=== PATIENT | female | born 1980 | race Caucasian/White ===

== ENCOUNTER 2017-07-22 03:47 | Observation (INO) ==
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
[2017-07-22] MEDS ORDERED: 0.9 % Sodium Chloride 1,000 ML ONE (04:13)
[2017-07-22 04:19] LABS: Basophils % 0.2 %; Eosinophils # 0.1 K/mcL (0.0-0.6); Eosinophils % 0.7 %; Hematocrit 35.7 % (35.3-44.9); Hemoglobin 11.8 g/dL (11.5-15.4); Immature Granulocytes % 0.6 % (0-4); Lymphocytes # 1.2 K/mcL (0.6-4.6); Lymphocytes % 12.2 %; Mean Corpuscular HGB Conc 33.1 g/dL (31.6-35.5); Mean Corpuscular Hemoglobin 27.6 pg (28.0-33.3); Mean Corpuscular Volume 83.4 fL (83.0-100.0); Mean Platelet Volume 10.1 fL (9.4-12.4); Monocytes # 0.8 K/mcL (0.0-1.3); Neutrophils # 7.9 K/mcL (1.6-8.9); Platelet Count 338 K/mcL (140-400); Red Blood Count 4.28 M/mcL (3.82-4.97); Red Cell Distribution Width 13.8 % (11.5-14.5); Segmented Neutrophils % 78.3 %
[2017-07-22 04:33] LABS: Alanine Aminotransferase 17 Units/L (0-55); Albumin 2.7 g/dL (3.5-5.0); Albumin/Globulin Ratio 0.6 (1.1-2.2); Alkaline Phosphatase 71 Units/L (38-126); Aspartate Amino Transferase 14 Units/L (5-34); BUN/Creatinine Ratio 6 (6-26); Bilirubin,Direct 0.2 mg/dL (0.0-0.5); Bilirubin,Indirect 0.1 mg/dL (0.0-1.2); Bilirubin,Total 0.3 mg/dL (0.2-1.2); Calcium 8.7 mg/dL (8.6-10.8); Carbon Dioxide 20 mEq/L (19-29); Chloride 106 mEq/L (98-109); Globulin 4.2 g/dL (2.4-3.5); Glucose 114 mg/dL (70-99); Osmolality,Calculated 275 (280-300); Potassium 3.7 mEq/L (3.5-4.5); Sodium 134 mEq/L (136-145); Total Protein 6.9 g/dL (6.0-8.3); eGFR For African Americans > 60 (> 60); eGFR For Non-African Americans > 60 (> 60)
[2017-07-22 04:36] LABS: Blood Urea Nitrogen 3 mg/dL (7-20)
[2017-07-22] MEDS ORDERED: 0.9 % Sodium Chloride 1,000 ML IVC ONE ×2 (04:52→05:08)
[2017-07-22 05:02] LABS: Bilirubin,Urine Negative (Negative); Blood,Urine Negative (Negative); Clarity,Urine Cloudy (Clear); Color,Urine Yellow (Yellow); Glucose,Urine (UA) Normal (Normal); Ketones,Urine Negative (Negative); Leukocyte Esterase,Urine Trace (Negative); Nitrite,Urine Negative (Negative); PH,Urine 7.5 pH Units (5.0-8.0); Protein,Urine Negative (Neg-Trace); Specific Gravity,Urine 1.019 (1.010-1.025); Urobilinogen,Urine Normal (Normal)
[2017-07-22 05:04] LABS: Bacteria,Urine Many per hpf (None-Few); Hyaline Casts,Urine None Seen per lpf (None-Few); Squamous Epithelial Cell,Urine Many per lpf (None-Few)
[2017-07-22 05:13] LABS: RBC,Urine 0-3 per hpf (0-3)
[2017-07-22] MEDS ORDERED: *HR* Morphine 2 MG/ML SYRINGE IVP ONE (05:17)
[2017-07-22] MEDS ORDERED: Ondansetron 4 MG/2 ML VIAL IVP PRN ×2 (09:56→16:27)
[2017-07-22] MEDS ORDERED: Naloxone 0.4 MG/ML INJ IVP PRN (09:56)
--- NOTE | 2017-07-22 10:34 | Internal Med History&Physical ---
Date of Encounter: 07/22/17 Time of Encounter: 10:15 Assessment and Plan (1) Influenza A Current visit: Yes Status: Acute Patient with acute influenza A. Symptom onset less than 48 hours. Per CDC guidelines, will start patient on treatment with Tamiflu. Supportive care. (2) Current visit: Yes Status: Acute 17 weeks of gestation. Continue vitamins. Qualifiers: Weeks of gestation: 17 weeks Qualified Code(s): Z3A.17 - 17 weeks gestation of (3) Nausea and vomiting Current visit: Yes Status: Acute Improving. We will use Zofran as needed for symptom control Qualifiers: Vomiting type: unspecified Vomiting Intractability: non-intractable Qualified Code(s): R11.2 - Nausea with vomiting, unspecified (4) Dehydration Current visit: Yes Status: Acute We will treat with IV fluids. (5) Low back pain Current visit: Yes Status: Acute Patient complaining of low back pain. Could be related to influenza. Urinalysis does not show any signs of acute pyelonephritis. Does have radiation down the thigh but not radiculopathy. Will treat symptomatically. Avoid narcotic agents if possible. Qualifiers: Chronicity: acute Back pain laterality: midline Sciatica presence: without sciatica Qualified Code(s): M54.5 - Low back pain Internal Medicine - H&P: HPI Chief complaint: Cough, nausea, vomiting, body aches, low back pain low-grade fever Admitted From: Emergency Dept Plans for Post Hospital Care: Home History of present illness: Ms. Rich is a 37 year old female patient who is 17 weeks with twin gestation presented to the ER with complaints of nausea and vomiting along with low-grade fever and cough. Her symptoms began on Friday evening with cough and low-grade fever. Since yesterday afternoon she began to have nausea and vomiting. She also reported low back ache that began yesterday afternoon. She does have some radiation of the pain down to her thighs. No focal weakness or numbness. Denies any chest pain. She did have some wheezing along with her cough. No history of asthma or COPD. No dysuria. Past Med Surg Social Fam HX - Past Medical History Attestation: Yes The following information was validated with the patient. Source: patient Medical history: kidney stones, other Psychiatric history: no psych history - Past Surgical History Surgical History: appendectomy, , other - Social History Smoking Status: Never smoker Smokeless Tobacco Status: No Alcohol use: occasionally Drug use: none - Family History Maternal Grandmother Name: Trixie Age: 85 Living Status: Still Living Hx Family Cardiac Disorders: Yes Internal Medicine - H&P: Meds Vit/Iron Fumarate/FA [ Tablet] 1 tab PO DAILY 07/22/17 [History ] 3 Allergy/AdvReac Type Severity Reaction Status Date / Time No Known Allergies Allergy Verified 07/22/17 03:49 All Systems PM: A 10-system review of systems was performed and is negative for pertinent findings except as documented above in the HPI. - Constitutional Constitutional: fever(s), no chills, no night sweats - EENT Eyes: no change in vision, no discharge, no pain, no photophobia Ears: no ear discharge, no ear pain, no tinnitus Nose, mouth and throat: no dysphagia, no nasal discharge, no neck pain, no sore throat - Cardiovascular Cardiovascular ROS IM: no chest pain, no diaphoresis, no dyspnea, no lightheadedness, no palpitations, no syncope - Respiratory Respiratory: cough, wheezing, no dyspnea, no excessive phlegm production - Gastrointestinal Gastrointestinal: nausea, vomiting, no abdominal pain, no diarrhea, no hematemesis, no hematochezia, no melena - Genitourinary Genitourinary: no change in urinary stream, no dysuria, no flank pain, no hematuria - Musculoskeletal Musculoskeletal ROS IM: no numbness, no tingling - Integumentary Integumentary IM: no rash, no unusual bruising - Neurological Neurological ROS: no confusion, no convulsions, no focal weakness, no numbness, no tingling, no tremor(s) - Hematologic/Lymphatic Hematologic/Lymphatic: no easy bruising - Constitutional Vitals: Temp Pulse Resp BP Pulse Ox 97.0 F L 107 18 126/85 99 07/22/17 08:39 07/22/17 08:39 07/22/17 08:39 07/22/17 08:39 07/22/17 08:39 General appearance: Present: cooperative, mild distress, A&O X 3, answers questions appropriately - Eye Eye exam: Present: EOMI, PERRL, conjuntiva pink, sclera anicteric - Respiratory Respiratory exam: Present: CTAB. Absent: accessory muscle use, rales, rhonchi, wheezes - Cardiovascular Cardiovascular exam: Present: RRR, +S1, +S2. Absent: diastolic murmur, gallop, rubs, systolic murmur - GI/Abdominal GI/Abdominal exam: Present: normal bowel sounds, soft, no peritoneal signs. Absent: distended, tenderness - Extremities Exam Extremities exam: Present: warm, radial pulses palpable and symmetrical. Absent : calf tenderness, cyanotic, pedal edema - Neurological Exam Neurological exam: Present: alert, CN II-XII intact, oriented X3, no focal deficits. Absent: facial droop, speech deficit - Skin Skin exam: Present: dry, intact Internal Med - H&P Results - Labs CBC & Chem 7: 07/22/17 04:10 07/22/17 04:10 - EKG Data -: EKG Interpreted by Myself EKG shows normal: sinus rhythm Rate: tachycardia
[2017-07-22] MEDS: Acetaminophen 325 MG TABLET PO PRN ×2 (10:45→19:41)
[2017-07-22 11:07] LABS: Basophils % 0.2 %; Eosinophils # 0.1 K/mcL (0.0-0.6); Eosinophils % 0.7 %; Hematocrit 33.7 % (35.3-44.9); Immature Granulocytes % 0.7 % (0-4); Lymphocytes # 1.5 K/mcL (0.6-4.6); Lymphocytes % 16.7 %; Mean Corpuscular HGB Conc 32.6 g/dL (31.6-35.5); Mean Corpuscular Hemoglobin 27.9 pg (28.0-33.3); Mean Corpuscular Volume 85.5 fL (83.0-100.0); Mean Platelet Volume 10.2 fL (9.4-12.4); Monocytes # 0.7 K/mcL (0.0-1.3); Monocytes % 8.1 %; Neutrophils # 6.4 K/mcL (1.6-8.9); Platelet Count 311 K/mcL (140-400); Red Blood Count 3.94 M/mcL (3.82-4.97); Segmented Neutrophils % 73.6 %
[2017-07-22] MEDS: 0.9 % Sodium Chloride 1,000 ML IVC SCH (17:41)
--- NOTE | 2017-07-22 17:52 | Electrocardiograph Report ---
[address] [address] Test Date: 2017-07-22 Pat Name: Viridiana Torresler Department: 104 Room: 3B Gender: F Solution Analyst: LUCERO : 1980 Requested By: Asher Hammer Order Number: [id number] Reading MD: Daisy Rich Measurements Intervals [place] Rate: 139 P: 69 AK: 131 QRS: 45 QRSD: 82 T: 19 QT: 352 QTc: 433 Interpretive Statements SINUS TACHYCARDIA NONSPECIFIC ST & T-WAVE ABNORMALITY ABNORMAL RHYTHM ECG Electronically Signed On 07-22-2017 17:50:51 EST by Daisy Rich
[2017-07-23] MEDS: 0.9 % Sodium Chloride 1,000 ML IVC SCH (04:08)
[2017-07-23 07:11] VITALS: BP 117/79
--- NOTE | 2017-07-23 09:27 | Discharge Summary ---
Date of Encounter: 07/23/17 Time of Encounter: 09:15 - Discharge Diagnosis (1) Influenza A Priority: Primary Status: Acute (2) Priority: Secondary Status: Acute Qualifiers: Weeks of gestation: 17 weeks Qualified Code(s): Z3A.17 - 17 weeks gestation of (3) Nausea and vomiting Priority: Secondary Status: Acute Qualifiers: Vomiting type: unspecified Vomiting Intractability: non-intractable Qualified Code(s): R11.2 - Nausea with vomiting, unspecified (4) Dehydration Priority: Secondary Status: Acute (5) Low back pain Priority: Secondary Status: Resolved Qualifiers: Chronicity: acute Back pain laterality: midline Sciatica presence: without sciatica Qualified Code(s): M54.5 - Low back pain - Discharge Medications Prescriptions: GuaiFENesin/Dextromethorphan [Robitussin/Dm] 10 ml PO Q6HR PRN #200 ml PRN Reason: Cough Oseltamivir [Tamiflu] 75 mg PO BID #7 capsule Home Medications: Vit/Iron Fumarate/FA [ Tablet] 1 tab PO DAILY 07/22/17 [History ] GuaiFENesin/Dextromethorphan [Robitussin/Dm] 10 ml PO Q6HR PRN #200 ml 07/23/17 [Rx] Oseltamivir [Tamiflu] 75 mg PO BID #7 capsule 07/23/17 [Rx] Allergies/Adverse Reactions: 3 Allergy/AdvReac Type Severity Reaction Status Date / Time No Known Allergies Allergy Verified 07/22/17 03:49 Date of admission: 07/22/17 08:16 Primary care physician: Robbin Rascon MD Discharging clinician: Randy Quintanilla Anticipated date of discharge: 07/23/17 - Patient Status Disposition: Home, Self-Care Condition: Good Functional capacity at discharge: independent ambulation Overall status at discharge: patient is back to baseline - Discharge Instructions Instructions: Oseltamivir (By mouth), Dextromethorphan/Guaifenesin/ Phenylephrine (By mouth), Influenza (DC) Follow Up With: Robbin Rascon MD [Primary Care Provider] - 07/31/17 2:00 pm - Diet and Activity Activity: increase activity as tolerated Diet: advance to your usual diet Hospital course: Ms. Rich is a 37 year old female patient who is 17 weeks with twin gestation presented to the ER with complaints of intractable nausea and vomiting along with low back pain along with some cough and upper respiratory symptoms. Patient was found to be positive for influenza A and as her symptom onset was less than 48 hours, she was started on Tamiflu. She was also treated symptomatically for her nausea and vomiting. Her symptoms have since improved and she is now feeling much better. Low back pain has resolved. She will be discharged home and will complete course of Tamiflu. She will follow up with her primary care provider and produce shipper for further management. - Time Spent with Patient Total time spent providing and/or coordinating discharge services: Less than 30 minutes (25 min) - Constitutional Vitals: Temp Pulse Resp BP Pulse Ox 97.9 F 100 18 117/79 95 07/23/17 07:10 07/23/17 07:10 07/23/17 07:10 07/23/17 07:10 07/23/17 07:10 General appearance: Present: cooperative, mild distress, A&O X 3, answers questions appropriately - Neck Neck exam general surgery: Present: supple, trachea midline. Absent: lymphadenopathy - Cardiovascular Cardiovascular exam: Present: RRR, +S1, +S2. Absent: diastolic murmur, gallop, rubs, systolic murmur - GI/Abdominal GI/Abdominal exam: Present: normal bowel sounds, soft, no peritoneal signs. Absent: distended, tenderness - Extremities Exam Extremities exam: Present: warm, radial pulses palpable and symmetrical. Absent : calf tenderness, cyanotic, pedal edema - Neurological Exam Neurological exam: Present: alert, oriented X3, no focal deficits. Absent: facial droop, speech deficit
== END 2017-07-23 11:20 | disposition home or self-care (01) ==
LOC: 3BNU 03:47 → EMEROO 03:47 → SUATTDRO 08:16 → 3BNU 08:26
PROVIDERS: ADMIT Registered Nurse; ATTEND Internal Medicine

== ENCOUNTER → 2017-08-31 03:50 | Observation (INO) ==
--- NOTE | 2017-08-31 02:02 | OB/GYN Progress Note ---
Date of Encounter: 08/31/17 Time of Encounter: 01:52 - Assessment and Plan (1) Twin gestation in second trimester Current Visit: Yes Status: Acute Qualifiers: Multiple gestation type: unspecified Qualified Code(s): O30.002 - Twin , unspecified number of placenta and unspecified number of amniotic sacs, second trimester (2) History of delivery Current Visit: Yes Status: Acute (3) Uterine contractions Current Visit: Yes Status: Acute Cervix closed on exam and remains unchanged on serial exams. Discussed with awais Paredes to discharge home with labor precautions. (4) Encounter for suspected PROM, with rupture of membranes not found Current Visit: Yes Status: Acute Speculum exam shows white vaginal discharge, negative pooling, nitrazine and ferning. Subjective - Subjective Interval history: Presents to triage with complaints of increasing abdominal cramping and contractions this evening. Pt states she usually has contractions but they are more intense this evening. Earlier this evening went to restroom and had a small amount of red blood when she wiped, but did not have it after the initial encounter. Pt also states she had a small amount of leaking earlier after using restroom "had fluid down her leg", but patient is unsure if she urinated or not. Reports good movement. History of labor in previous twin at 24 weeks with delivery at 32 weeks. Antepartum ROS: loss of fluid, vaginal bleeding, movement normal, contractions Objective - Vital Signs Vital Signs: Intake and Output 08/30/17 08/30/17 08/31/17 15:59 23:59 07:59 Other: Weight 104.4 kg Patient Weight 08/31/17 23:59 Weight 104.4 kg - Exam FHR: auscultation normal FHR comments: A-135, B-145 Abdomen: Present: normal appearance, soft, gravid Cervical dilation: Closed, firm
[2017-08-31 02:17] LABS: Bilirubin,Urine Negative (Negative); Blood,Urine Negative (Negative); Clarity,Urine Cloudy (Clear); Color,Urine Yellow (Yellow); Glucose,Urine (UA) Normal (Normal); Ketones,Urine Negative (Negative); Leukocyte Esterase,Urine Small (Negative); Nitrite,Urine Negative (Negative); Protein,Urine Negative (Neg-Trace); Specific Gravity,Urine 1.016 (1.010-1.025); Urobilinogen,Urine Normal (Normal)
[2017-08-31 02:20] LABS: Bacteria,Urine Moderate per hpf (None-Few); Hyaline Casts,Urine None Seen per lpf (None-Few); RBC,Urine 0-3 per hpf (0-3); Squamous Epithelial Cell,Urine Many per lpf (None-Few)
[2017-08-31 02:31] LABS: Amphetamine Screen,Urine Negative ng/mL (Cutoff=1000); Barbiturate Screen,Urine Negative ng/mL (Cutoff=200); Benzodiazepines Screen,Urine Negative ng/mL (Cutoff=200); Cannabinoid Screen,Urine Negative ng/mL (Cutoff = 50); Cocaine Screen,Urine Negative ng/mL (Cutoff= 300); Opiate Screen,Urine Negative ng/mL (Cutoff=300); Phencyclidine Screen,Urine Negative ng/mL (Cutoff=25)
[~2017-08-31 03:50] MED LIST: Ringers Solution, Lactated 1,000 ML IVC ONE; Ringers Solution, Lactated 1,000 ML ONE
== END | disposition home or self-care (01) ==
LOC: 1NENULAB
PROVIDERS: ADMIT Obstetrics & Gynecology; ATTEND Obstetrics & Gynecology